=== PATIENT | female | born 1965 | race Two or more races ===

== ENCOUNTER 2018-01-03 08:19 | Outpatient (CLI) | payer OTHER | END 2018-01-03 08:37 | disposition home or self-care (01) | LOC: RAD 08:19 → MRI 08:45 | DX: E04.9 Nontoxic goiter, unspecified (principal); D32.0 Benign neoplasm of cerebral meninges | CPT/HCPCS: 70553 ==

== ENCOUNTER 2019-01-25 08:40 | Outpatient (CLI) | payer OTHER | END 2019-01-25 08:43 | disposition home or self-care (01) | LOC: MRI 08:40 | DX: D32.0 Benign neoplasm of cerebral meninges (principal) | CPT/HCPCS: 70553 ==

== ENCOUNTER 2019-04-09 04:09 | Emergency (ER) | payer OTHER ==
[~2019-04-09] VITALS: Ht 162.6 cm; Wt 59.0 kg
== END 2019-04-09 10:27 | disposition home or self-care (01) ==
LOC: ER 04:09
DX: N20.1 Calculus of ureter (principal); R11.11 Vomiting without nausea

== ENCOUNTER 2020-07-30 13:21 | Inpatient (IN) | payer OTHER ==
[~2020-07-30] VITALS: Ht 162.6 cm; Wt 60.8 kg
== END 2020-08-01 17:16 | disposition home or self-care (01) | DRG 660 ==
LOC: ER 13:21 → SEC-K 18:09 → SURH 18:09 → O/R 19:04 → SURH 21:11
PROVIDERS: ADMIT Urology; ATTEND Urology
PROC: BW21ZZZ Computerized Tomography (CT Scan) of Abdomen and Pelvis (ICD-10-PCS; 2020-07-30)
PROC: 0T778DZ Dilation of Left Ureter with Intraluminal Device, Via Natural or Artificial Opening Endoscopic (ICD-10-PCS; principal; 2020-07-30 19:00)
DX: N20.1 Calculus of ureter (principal); N30.00 Acute cystitis without hematuria; B96.1 Klebsiella pneumoniae [K. pneumoniae] as the cause of diseases classified elsewhere; Z20.828 Contact with and (suspected) exposure to other viral communicable diseases

== ENCOUNTER → 2020-08-12 | Outpatient (CLI) | payer OTHER | END | disposition home or self-care (01) | LOC: RAD 12:20 | PROVIDERS: ATTEND Urology | DX: N20.1 Calculus of ureter (principal) ==

== ENCOUNTER 2020-09-18 11:59 | Outpatient (CLI) | payer OTHER | END 2020-09-18 12:12 | disposition home or self-care (01) | LOC: RAD 11:59 | PROVIDERS: ATTEND Urology | DX: N20.1 Calculus of ureter (principal); R31.1 Benign essential microscopic hematuria ==

== ENCOUNTER 2020-09-23 13:45 | Outpatient (CLI) | payer OTHER | END 2020-09-23 13:54 | disposition home or self-care (01) | LOC: LAB 13:45 | DX: D32.0 Benign neoplasm of cerebral meninges (principal) ==

== ENCOUNTER → 2020-09-24 | Outpatient (CLI) | payer OTHER | END | disposition home or self-care (01) | LOC: MRI 11:15 | DX: D32.0 Benign neoplasm of cerebral meninges (principal) | CPT/HCPCS: 70553 ==

== ENCOUNTER 2021-09-22 11:36 | Outpatient (CLI) | payer OTHER | END 2021-09-22 11:43 | disposition home or self-care (01) | LOC: SONOGRAMA 11:36 | PROVIDERS: ATTEND Urology | DX: N20.1 Calculus of ureter (principal) ==

== ENCOUNTER 2022-10-08 09:12 | Outpatient (CLI) | payer OTHER | END 2022-10-08 10:27 | disposition home or self-care (01) | LOC: MRI 09:12 | DX: D32.0 Benign neoplasm of cerebral meninges (principal) | CPT/HCPCS: 70553 ==

== ENCOUNTER 2023-05-11 10:29 | Outpatient (CLI) | payer OTHER | END 2023-05-11 10:41 | disposition home or self-care (01) | LOC: SONOGRAMA 10:29 | PROVIDERS: ATTEND Family Medicine | DX: M79.9 Soft tissue disorder, unspecified (principal) ==

== ENCOUNTER 2023-06-11 13:33 | Outpatient (CLI) | payer OTHER | END 2023-06-11 13:37 | disposition home or self-care (01) | LOC: NUCLEAR 13:33 | PROVIDERS: ATTEND Family Medicine | DX: M85.80 Other specified disorders of bone density and structure, unspecified site (principal) ==

== ENCOUNTER 2024-02-25 13:34 | Inpatient (IN) | payer OTHER ==
[~2024-02-25] VITALS: Ht 162.6 cm; Wt 58.5 kg
[2024-02-25 13:43] LABS: URINE APPEARANCE Clear; URINE BILIRRUBIN Negative (NEGATIVE); URINE BLOOD Negative; URINE COLOR Yellow; URINE GLUCOSE Negative (NEGATIVE); URINE KETONE Negative (NEGATIVE); URINE LEUKOCYTE Trace; URINE NITRATE Negative; URINE PROTEIN Negative (NEGATIVE); URINE UROBILINOGEN 0.2 E.U./dl
[2024-02-25 13:45] LABS: HEMATOCRIT 40.9 % (36.0-45.00); HEMOGLOBIN 14.1 g/dL (12.0-15.00); MEAN CELL VOLUME 92.4 fL (80.00-100.00); MEAN CORPUSCULAR HEMOGLOBIN 31.8 pg (27.00-32.0); MEAN CORPUSCULAR HGB CONC 34.4 g/dl (32.0-36.0); PLATELET COUNT 262 K/uL (150-450); RED BLOOD COUNT 4.43 M/uL (4.00-6.00); RED CELL DISTRIBUTION WIDTH 13.2 % (11.5-14.5)
[2024-02-25 13:46] LABS: URINE BACTERIA 47.8 uL (0.0-1933); URINE RBC 6.5 uL (0.0-20.8)
[2024-02-25 14:34] LABS: ALBUMIN 4.1 gm/dL (3.4-5.0); BILIRUBIN TOTAL 0.69 mg/dL (0.3-1.2); CALCIUM 9.8 mg/dL (8.5-10.1); CREATININE SERUM 0.71 mg/dL (0.55-1.02); GFR 85.15; GLOBULINA 3.6 G/DL (2.4-3.5); TOTAL PROTEIN 7.7 gm/dL (6.4-8.2)
[2024-02-25 14:49] LABS: INR 0.98; PARTIAL THROMBOPLASTIN TIME 29.4 SECONDS (22.0-34.0); PROTHROMBIN TIME 10.3 SECONDS (9.0-11.5)
[2024-02-25] MEDS ORDERED: KLOR-CON M1010 MEQ PO (17:05)
[2024-02-25] MEDS ORDERED: ROSUVASTATIN CAL5 MG PO (17:05)
[2024-03-01] MEDS ORDERED: METRONIDAZOLE/SODIUM CHLORIDE 500 MG/100 ML PIGGYBACK IV ONE (06:17)
[2024-03-01] MEDS ORDERED: BUPIVACAINE HCL/Mpf 0.5% 10ML VIAL ONE (06:51)
[2024-03-01] MEDS ORDERED: LIDOCAINE HCL 1%/EPINEPHRINE 20ML VIAL IJ ONE (06:51)
[2024-03-01] MEDS ORDERED: levoFLOXacin IN DEXTROSE 5 % 5 MG/ML PIGGYBAG IV ONE (08:15)
[2024-03-01] MEDS ORDERED: OxyCODONE HCL 5 MG TABLET (ROXICODONE) PO PRN (12:00)
[2024-03-01] MEDS ORDERED: ONDANSETRON HCL 2 MG/ML VIAL IV PRN (12:00)
[2024-03-01] MEDS ORDERED: RINGERS SOLUTION,LACTATED 1,000 ML IV SCH (12:00)
[2024-03-01] MEDS ORDERED: MORPHINE SULFATE 4 MG/ML CARTRIDGE IV PRN (12:00)
[2024-03-01] MEDS ORDERED: DEXTROSE 50 % IN WATER 0.5 G/ML DISP.SYRIN IV PRN (12:00)
[2024-03-01 12:58] LABS: HEMATOCRIT 36.8 % (36.0-45.00); HEMOGLOBIN 12.8 g/dL (12.0-15.00); MEAN CELL VOLUME 92.1 fL (80.00-100.00); MEAN CORPUSCULAR HGB CONC 34.7 g/dl (32.0-36.0); PLATELET COUNT 234 K/uL (150-450); RED BLOOD COUNT 3.99 M/uL (4.00-6.00); RED CELL DISTRIBUTION WIDTH 12.9 % (11.5-14.5)
[2024-03-01] MEDS ORDERED: HYOSCYAMINE SULFATE 0.125 MG TAB.SUBL SL SCH (13:00)
[2024-03-01] MEDS ORDERED: SIMETHICONE 125 MG CAPSULE PO SCH (13:00)
[2024-03-01] MEDS ORDERED: ACETAMINOPHEN 500 MG GEL..CAP PO SCH (14:00)
[2024-03-01] MEDS ORDERED: CELECOXIB 200 MG CAPSULE PO SCH (17:00)
[2024-03-01] MEDS ORDERED: METOCLOPRAMIDE HCL 5 MG/ML VIAL IV SCH (17:00)
[2024-03-01] MEDS ORDERED: POLYETHYLENE GLYCOL 3350 17 GM BLIST.PACK PO SCH (17:00)
[2024-03-01] MEDS ORDERED: GABAPENTIN 300 MG CAPSULE PO SCH (17:00)
[2024-03-01] MEDS ORDERED: FAMOTIDINE/PF 20 MG/2 ML VIAL IV PUSH SCH (21:00)
[2024-03-02 07:07] LABS: ALBUMIN 3.3 gm/dL (3.4-5.0); CALCIUM 9.3 mg/dL (8.5-10.1); CREATININE SERUM 0.65 mg/dL (0.55-1.02); GFR 94.29; MAGNESIUM 1.7 mg/dL (1.8-2.4); PHOSPHOROUS 3.3 mg/dL (2.5-4.9)
[2024-03-02 07:14] LABS: POTASSIUM 4.64 mEq/L (3.5-5.1)
[2024-03-02 07:28] LABS: HEMOGLOBIN 12.8 g/dL (12.0-15.00); MEAN CELL VOLUME 91.5 fL (80.00-100.00); MEAN CORPUSCULAR HEMOGLOBIN 31.6 pg (27.00-32.0); MEAN CORPUSCULAR HGB CONC 34.6 g/dl (32.0-36.0); PLATELET COUNT 224 K/uL (150-450); RED BLOOD COUNT 4.04 M/uL (4.00-6.00); RED CELL DISTRIBUTION WIDTH 13.1 % (11.5-14.5)
[2024-03-02] MEDS ORDERED: LACTOBACILLUS ACIDOPHILUS 1 CAP CAP PO SCH (09:00)
[2024-03-02] MEDS ORDERED: LACTULOSE 20 G/30 ML BLIST.PACK PO SCH (09:00)
[2024-03-02] MEDS ORDERED: ENOXAPARIN SODIUM 40 MG/0.4 ML SYRINGE SUBCUTANEO SCH (17:00)
[2024-03-03] MEDS ORDERED: ENOXAPARIN SODIUM 40 MG/0.4 ML SYRINGE SUBCUTANEO SCH (09:00)
== END 2024-03-03 14:26 | disposition home or self-care (01) | DRG 331 ==
LOC: SURG 03-01 05:33 → O/R 03-01 05:33 → SURH 03-01 05:33 → SURG 03-01 12:37 → SURH 03-02 14:26
PROVIDERS: ADMIT Colon & Rectal Surgery; ATTEND Colon & Rectal Surgery
PROC: 07BC4ZX Excision of Pelvis Lymphatic, Percutaneous Endoscopic Approach, Diagnostic (ICD-10-PCS; 2024-03-01)
PROC: 0DBF4ZZ Excision of Right Large Intestine, Percutaneous Endoscopic Approach (ICD-10-PCS; principal; 2024-03-01 15:45)
DX: C7A.012 Malignant carcinoid tumor of the ileum (principal)

== ENCOUNTER 2024-02-29 06:41 | Day surgery (SDC) | payer OTHER ==
[~2024-02-29 06:41] MED LIST: KLOR-CON M1010 MEQ PO; ROSUVASTATIN CAL5 MG PO
[2024-02-29] MEDS ORDERED: DIPHENHYDRAMINE HCL 50 MG/ML VIAL 1ML IV ONE ×2 (11:45→13:45)
[2024-02-29] MEDS ORDERED: MIDAZOLAM HCL 2 MG/2 ML VIAL IV ONE (11:45)
[2024-02-29] MEDS ORDERED: fentaNYL CITRATE 50 MCG/ML AMPUL IV PUSH ONE (11:45)
== END 2024-02-29 15:00 | disposition home or self-care (01) ==
LOC: AMB-ENDOS 06:41
PROVIDERS: ATTEND Colon & Rectal Surgery
DX: C7A.012 Malignant carcinoid tumor of the ileum (principal); R19.5 Other fecal abnormalities; Z88.1 Allergy status to other antibiotic agents; Z88.0 Allergy status to penicillin

== ENCOUNTER 2025-01-31 08:30 | Outpatient (CLI) | payer OTHER | END 2025-01-31 08:32 | disposition home or self-care (01) | LOC: MRI 08:30 | PROVIDERS: ATTEND Internal Medicine Cardiovascular Disease | DX: D32.9 Benign neoplasm of meninges, unspecified (principal) | CPT/HCPCS: 70552 ==